=== PATIENT | female | born 1955 | race Native Hawaiian/Other Pacific Islander ===

== ENCOUNTER 2017-01-02 07:44 | Outpatient (CLI) | payer OTHER | END 2017-01-02 21:51 | disposition home or self-care (01) | LOC: NM 07:44 | DX: R10.11 Right upper quadrant pain (principal) | CPT/HCPCS: A9537 ==

== ENCOUNTER 2017-01-21 08:30 | Day surgery (SDC) | payer OTHER ==
[2017-01-16 11:35] LABS: PLATELET COUNT 372 K/uL (152-353)
[2017-01-16 11:44] LABS: POTASSIUM 4.2 mmol/L (3.6-5.2); SODIUM 126 mmol/L (136-145)
== END 2017-01-21 13:37 | disposition home or self-care (01) ==
LOC: OR 08:30
PROVIDERS: Student in an Organized Health Care Education/Training Program
PROC: 0FT44ZZ Resection of Gallbladder, Percutaneous Endoscopic Approach (ICD-10-PCS; principal; 2017-01-21)
DX: K82.8 Other specified diseases of gallbladder (principal)
CPT/HCPCS: 36415; 80053; 85027; J0132; J0330; J0690; J1100; J1170; J1200; J2001; J2250; J2405; J2704; J2765; J3010; J3490; S0028

== ENCOUNTER 2020-06-25 08:49 | Outpatient (CLI) | payer OTHER | END 2020-06-25 18:17 | disposition home or self-care (01) | LOC: RAD 08:49 | PROVIDERS: ATTEND Anesthesiology Pain Medicine | DX: M54.2 Cervicalgia (principal) ==

== ENCOUNTER 2020-07-18 10:32 | Outpatient (CLI) | payer OTHER | END 2020-07-18 19:13 | disposition home or self-care (01) | LOC: MRI 10:32 | PROVIDERS: ATTEND Anesthesiology Pain Medicine | DX: M54.5 Low back pain (principal) ==

== ENCOUNTER 2021-09-06 10:17 | Outpatient (CLI) | payer OTHER | END 2021-09-06 19:23 | disposition home or self-care (01) | LOC: LABW 10:17 | PROVIDERS: ATTEND Podiatrist | DX: Z01.818 Encounter for other preprocedural examination (principal) | CPT/HCPCS: 36415; 80323 ==

== ENCOUNTER 2021-09-25 09:40 | Outpatient (CLI) | payer OTHER | END 2021-09-25 18:57 | disposition home or self-care (01) | LOC: LABW 09:40 | PROVIDERS: ATTEND Podiatrist | DX: B35.1 Tinea unguium (principal) | CPT/HCPCS: 36415; 84450; 84460 ==

== ENCOUNTER 2021-10-18 10:08 | Outpatient (CLI) | payer OTHER | END 2021-10-18 19:01 | disposition home or self-care (01) | LOC: LABW 10:08 | PROVIDERS: ATTEND Podiatrist | DX: Z09 Encounter for follow-up examination after completed treatment for conditions other than malignant neoplasm (principal); Z87.891 Personal history of nicotine dependence | CPT/HCPCS: 36415; 80323; 84450; 84460 ==

== ENCOUNTER 2021-10-26 09:47 | Outpatient (CLI) | payer OTHER | END 2021-10-26 20:52 | disposition home or self-care (01) | LOC: LABW 09:47 | PROVIDERS: ATTEND Podiatrist | DX: B35.1 Tinea unguium (principal) | CPT/HCPCS: 36415; 84450; 84460 ==

== ENCOUNTER 2021-11-06 10:12 | Outpatient (CLI) | payer OTHER ==
[2021-11-06 10:54] LABS: PLATELET COUNT 263 K/uL (152-353)
[2021-11-06 11:22] LABS: POTASSIUM 3.1 mmol/L (3.6-5.2)
== END 2021-11-06 19:10 | disposition home or self-care (01) ==
LOC: LABW 10:12
PROVIDERS: ATTEND Podiatrist
DX: Z01.810 Encounter for preprocedural cardiovascular examination (principal); Z01.811 Encounter for preprocedural respiratory examination; Z01.812 Encounter for preprocedural laboratory examination
CPT/HCPCS: 36415; 80053; 85027

== ENCOUNTER 2022-06-05 10:13 | Outpatient (CLI) | payer OTHER ==
[2022-06-05 10:41] LABS: PLATELET COUNT 339 K/uL (152-353)
[2022-06-05 10:53] LABS: POTASSIUM 4.3 mmol/L (3.6-5.2)
== END 2022-06-05 19:21 | disposition home or self-care (01) ==
LOC: LABW 10:13 → US 10:30 → LABW 19:21
PROVIDERS: ATTEND Student in an Organized Health Care Education/Training Program
DX: Z01.89 Encounter for other specified special examinations (principal); N28.89 Other specified disorders of kidney and ureter; D63.1 Anemia in chronic kidney disease; E79.0 Hyperuricemia without signs of inflammatory arthritis and tophaceous disease; R80.8 Other proteinuria; R94.6 Abnormal results of thyroid function studies; D50.8 Other iron deficiency anemias; E55.9 Vitamin D deficiency, unspecified; E78.2 Mixed hyperlipidemia; E11.65 Type 2 diabetes mellitus with hyperglycemia; Z79.899 Other long term (current) drug therapy; N18.9 Chronic kidney disease, unspecified; I12.9 Hypertensive chronic kidney disease with stage 1 through stage 4 chronic kidney disease, or unspecified chronic kidney disease
CPT/HCPCS: 36415; 80053; 80074; 81002; 82306; 82550; 82570; 83036; 83516; 83735; 83970; 84100; 84156; 84165; 84550; 85027; 86037; 86160; 86592; 86701; 86702; 87389

== ENCOUNTER 2022-07-05 11:08 | Outpatient (CLI) | payer OTHER ==
[2022-07-05 12:18] LABS: POTASSIUM 3.8 mmol/L (3.6-5.2)
== END 2022-07-05 20:37 | disposition home or self-care (01) ==
LOC: LABW 11:08
PROVIDERS: ATTEND Student in an Organized Health Care Education/Training Program
DX: E87.1 Hypo-osmolality and hyponatremia (principal); D50.8 Other iron deficiency anemias; E78.2 Mixed hyperlipidemia; R94.6 Abnormal results of thyroid function studies; E55.9 Vitamin D deficiency, unspecified; Z79.899 Other long term (current) drug therapy
CPT/HCPCS: 36415; 80053; 82533; 83930; 83935; 84300; 84436; 84443; 84550

== ENCOUNTER 2022-08-15 14:50 | Emergency (ER) | payer OTHER ==
[~2022-08-15] VITALS: Ht 160 cm; Wt 77.1 kg
[2022-08-15 14:56] VITALS: BP 196/76; TEMP 97.4
== END 2022-08-15 16:23 | disposition home or self-care (01) ==
LOC: ED 14:50
DX: M46.1 Sacroiliitis, not elsewhere classified (principal); G89.29 Other chronic pain
CPT/HCPCS: 96372; 99283; J1885; J2930

== ENCOUNTER 2022-08-23 11:47 | Emergency (ER) | payer OTHER ==
[~2022-08-23] VITALS: Ht 160 cm; Wt 77.1 kg
[2022-08-23 12:04] VITALS: TEMP 98
[2022-08-23 14:21] VITALS: BP 122/79
== END 2022-08-23 14:22 | disposition home or self-care (01) ==
LOC: ED 11:47
DX: M46.1 Sacroiliitis, not elsewhere classified (principal)
CPT/HCPCS: 96372; 99283; J1885

== ENCOUNTER 2022-08-27 08:08 | Outpatient (CLI) | payer OTHER ==
[2022-08-27 09:03] LABS: POTASSIUM 4.6 mmol/L (3.6-5.2)
== END 2022-08-27 19:56 | disposition home or self-care (01) ==
LOC: LABW 08:08
PROVIDERS: ATTEND Student in an Organized Health Care Education/Training Program
DX: E87.1 Hypo-osmolality and hyponatremia (principal); I10 Essential (primary) hypertension; R80.8 Other proteinuria
CPT/HCPCS: 36415; 80053; 82533; 83930; 83935; 84300; 84550

== ENCOUNTER 2022-10-16 13:49 | Outpatient (CLI) | payer OTHER | END 2022-10-16 19:03 | disposition home or self-care (01) | LOC: MRI 13:49 | PROVIDERS: ATTEND Orthopaedic Surgery | DX: M54.59 Other low back pain (principal); M54.16 Radiculopathy, lumbar region; M48.062 Spinal stenosis, lumbar region with neurogenic claudication ==

== ENCOUNTER 2022-12-19 10:28 | Outpatient (CLI) | payer OTHER ==
[2022-12-19 11:10] LABS: POTASSIUM 3.9 mmol/L (3.6-5.2)
== END 2022-12-19 19:27 | disposition home or self-care (01) ==
LOC: LABW 10:28
PROVIDERS: ATTEND Student in an Organized Health Care Education/Training Program
DX: E87.1 Hypo-osmolality and hyponatremia (principal); I10 Essential (primary) hypertension; R80.8 Other proteinuria; R94.6 Abnormal results of thyroid function studies; D50.8 Other iron deficiency anemias; E55.9 Vitamin D deficiency, unspecified; E78.2 Mixed hyperlipidemia
CPT/HCPCS: 36415; 80053; 82533; 83930; 83935; 84300; 84436; 84443; 84550